=== PATIENT | female | born 2000 | race Hispanic/Latino ===

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

== ENCOUNTER 2024-03-27 11:50 | Emergency (ER) | payer OTHER ==
[2024-03-27] VITALS (15 sets, daily range): BP systolic 55–123; BP diastolic 39–93
[~2024-03-27] VITALS: Ht 154.9 cm; Wt 58.9 kg
[~2024-03-27 11:50] MED LIST changes: +OMNI-PAC300 MG PO
[2024-03-27 13:03] LABS: BASO% 0.6 % (0-3); EOS% 2.6 % (0-8); HEMATOCRIT 43.9 % (37.0-47.0); HEMOGLOBIN 14.6 g/dl (12.0-16.0); IMMATURE GRANULOCYTES 0.1 % (0.0-5.0); LYMPH% 26.8 % (15-41); MEAN CELL VOLUME 90.3 fL CALC (80.0-100.0); MEAN CORPUSCULAR HGB CONC 33.3 g/dL CAL (32.0-36.0); MONO% 4.7 % (2-13); NEUT# 4.74 thou/uL (2.00-7.15); NEUT% 65.2 % (42-76); RED BLOOD COUNT 4.86 mill/uL (4.20-5.60); RED CELL DISTRI WIDTH 12.1 % (11.5-15.5)
[2024-03-27 13:04] LABS: URINE BILIRUBIN - DIPSTICK Negative (NEGATIVE); URINE BLOOD DIPSTICK Negative (NEGATIVE); URINE GLUCOSE - DIPSTICK Negative (NEGATIVE); URINE KETONE Negative (NEGATIVE); URINE LEUK ESTERASE Negative (NEGATIVE); URINE NITRITE - DIPSTICK Negative (Negative); URINE PH 8.5 (4.5-8.0); URINE PROTEIN - DIPSTICK Negative (NEG-TRACE); URINE UROBILINOGEN - DIPSTICK 0.2 E.U./dL (0.2)
[2024-03-27 13:08] LABS: URINE COLOR Yellow
[2024-03-27 13:19] LABS: ALBUMIN 4.8 g/dL (3.2-5.0); ALKALINE PHOSPHATASE 144 u/l (38-126); AMYLASE 72 u/l (30-110); BILIRUBIN, TOTAL 0.4 mg/dL (0.02-1.3); BUN 14 mg/dL (7-17); BUN/CREATININE RATIO 23 (12-20 (CALC)); CARBON DIOXIDE 23 mmol/l (22-30); CHLORIDE 109 mmol/l (95-108); CREATININE 0.6 mg/dL (0.5-1.0); ESTIMATED GFR 131 ML/MIN (>=90 (CALC)); LIPASE 119 u/l (23-300); SGOT/AST 25 u/l (14-36); SODIUM 140 mmol/l (137-146)
[2024-03-27 13:22] LABS: ANION GAP 13 (6-22 (CALC)); POTASSIUM 4.5 mmol/l (3.5-5.1)
== END 2024-03-27 17:07 | disposition home or self-care (01) ==
LOC: ED 11:50
PROVIDERS: Nurse Practitioner Acute Care
DX: K80.20 Calculus of gallbladder without cholecystitis without obstruction (principal)
CPT/HCPCS: Q9967